=== PATIENT | male | born 1945 | race Two or more races ===

== ENCOUNTER 2023-02-08 13:56 | Outpatient (CLI) | payer OTHER | END 2023-02-08 14:03 | disposition home or self-care (01) | LOC: NUCLEAR 13:56 | PROVIDERS: ATTEND Internal Medicine Endocrinology, Diabetes & Metabolism | DX: M85.89 Other specified disorders of bone density and structure, multiple sites (principal); Z13.820 Encounter for screening for osteoporosis ==

== ENCOUNTER 2023-03-23 07:06 | Outpatient (CLI) | payer OTHER | END 2023-03-23 07:17 | disposition home or self-care (01) | LOC: SONOGRAMA 07:06 | PROVIDERS: ATTEND Internal Medicine Hematology & Oncology | DX: D69.6 Thrombocytopenia, unspecified (principal); B34.9 Viral infection, unspecified ==

== ENCOUNTER 2024-06-21 21:46 | Inpatient (IN) | payer OTHER ==
[~2024-06-21] VITALS: Ht 170.2 cm; Wt 72.6 kg
[2024-06-21] MEDS ORDERED: LIPITOR20 MG (21:56)
[2024-06-21] MEDS ORDERED: GLUMETZA1000 MG (21:57)
[2024-06-21] MEDS ORDERED: COZAAR50 MG (21:57)
[2024-06-21] MEDS ORDERED: NORVASC2.5 MG (21:58)
[2024-06-21] MEDS ORDERED: TAMS0.4C (22:01)
[2024-06-22] MEDS ORDERED: 0.9 % SODIUM CHLORIDE 1,000 ML IV ONE (00:45)
[2024-06-22 01:29] LABS: HEMATOCRIT 34.7 % (39.0-48.0); HEMOGLOBIN 11.7 g/dL (13-16.00); MEAN CELL VOLUME 89.1 fL (80.0-100.00); MEAN CORPUSCULAR HEMOGLOBIN 30.1 pg (27.00-32.0); MEAN CORPUSCULAR HGB CONC 33.7 g/dl (32.0-36.0); RED CELL DISTRIBUTION WIDTH 15.6 % (11.5-14.5)
[2024-06-22 01:32] LABS: PLATELET COUNT 120 K/uL (150-450)
[2024-06-22] MEDS ORDERED: BARIUM SULFATE 450 ML ORAL.SUSP PO ONE (01:37)
[2024-06-22 01:57] LABS: ALBUMIN 3.6 gm/dL (3.4-5.0); BILIRUBIN TOTAL 0.65 mg/dL (0.3-1.2); CALCIUM 8.9 mg/dL (8.5-10.1); CREATININE SERUM 0.92 mg/dL (0.70-1.30); GFR 79.16; GLOBULINA 3.6 G/DL (2.4-3.5); POTASSIUM 3.93 mEq/L (3.5-5.1); TOTAL PROTEIN 7.2 gm/dL (6.4-8.2)
[2024-06-22 02:47] LABS: INR 1.2; PARTIAL THROMBOPLASTIN TIME 37.5 SECONDS (22.0-34.0); PROTHROMBIN TIME 12.4 SECONDS (9.0-11.5)
[2024-06-22 04:29] LABS: PH,URINE 5.5 (5.0-8.0); URINE APPEARANCE Clear; URINE BILIRRUBIN Negative (NEGATIVE); URINE BLOOD Large; URINE COLOR Yellow; URINE GLUCOSE Negative (NEGATIVE); URINE LEUKOCYTE Negative; URINE NITRATE Negative; URINE PROTEIN Negative (NEGATIVE); URINE UROBILINOGEN 0.2 E.U./dl; ob POSITIVE (NEGATIVE)
[2024-06-22 04:32] LABS: URINE BACTERIA 22.6 uL (0.0-1933); URINE RBC 104.7 uL (0.0-20.8)
[2024-06-22 06:20] LABS: HEMATOCRIT 33.8 % (39.0-48.0); HEMOGLOBIN 11.3 g/dL (13-16.00); MEAN CELL VOLUME 89.9 fL (80.0-100.00); MEAN CORPUSCULAR HGB CONC 33.4 g/dl (32.0-36.0); RED BLOOD COUNT 3.76 M/uL (4.00-6.00); RED CELL DISTRIBUTION WIDTH 15.5 % (11.5-14.5)
[2024-06-22 06:23] LABS: PLATELET COUNT 116 K/uL (150-450)
[2024-06-22] MEDS ORDERED: PANTOPRAZOLE SODIUM 40 MG/VIAL VIAL IV PUSH SCH (11:09)
[2024-06-22] MEDS ORDERED: LOSARTAN POTASSIUM 50 MG TABLET PO SCH (11:10)
[2024-06-22] MEDS ORDERED: ATORVASTATIN CALCIUM 20 MG TABLET PO SCH (11:10)
[2024-06-22] MEDS ORDERED: TAMSULOSIN HCL 0.4 MG CAP PO SCH (11:10)
[2024-06-22] MEDS ORDERED: PHYTONADIONE 10 MG/ML AMPUL IM SCH (11:11)
[2024-06-22] MEDS ORDERED: SODIUM CHLORIDE 0.45 % 1,000 ML IV SCH (11:15)
[2024-06-22] MEDS ORDERED: ACETAMINOPHEN 500 MG GEL..CAP PO PRN (11:15)
[2024-06-22] MEDS ORDERED: TAMSULOSIN HCL 0.4 MG CAP PO ONE (11:51)
[2024-06-22] MEDS ORDERED: PHYTONADIONE 10 MG/ML AMPUL ONE (11:51)
[2024-06-22] MEDS ORDERED: AMLODIPINE BESYLATE 5 MG TABLET PO SCH (17:00)
[2024-06-22] MEDS ORDERED: CLONAZEPAM 0.5 MG TABLET PO SCH ×2 (21:00)
[2024-06-23 06:45] LABS: HEMATOCRIT 31.5 % (39.0-48.0); HEMOGLOBIN 10.7 g/dL (13-16.00); MEAN CELL VOLUME 89.5 fL (80.0-100.00); MEAN CORPUSCULAR HEMOGLOBIN 30.4 pg (27.00-32.0); RED BLOOD COUNT 3.52 M/uL (4.00-6.00); RED CELL DISTRIBUTION WIDTH 15.1 % (11.5-14.5)
[2024-06-23 06:48] LABS: PLATELET COUNT 117 K/uL (150-450)
[2024-06-23 06:58] LABS: INR 1.04; PARTIAL THROMBOPLASTIN TIME 28.2 SECONDS (22.0-34.0); PROTHROMBIN TIME 10.9 SECONDS (9.0-11.5)
[2024-06-23 07:41] LABS: ALBUMIN 3.4 gm/dL (3.4-5.0); BILIRUBIN TOTAL 0.93 mg/dL (0.3-1.2); CALCIUM 8.9 mg/dL (8.5-10.1); CHOL HDL RATIO 2.5 (0-5.0); CREATININE SERUM 0.83 mg/dL (0.70-1.30); GFR 89.14; GLOBULINA 2.8 G/DL (2.4-3.5); POTASSIUM 4.1 mEq/L (3.5-5.1); T4 FREE 0.89 NG/ML (0.76-1.46); TOTAL PROTEIN 6.2 gm/dL (6.4-8.2); TSH 0.735 uIU/mL (0.358-3.74)
[2024-06-23 07:56] LABS: PROSTATIC SPECIFIC ANTIGEN 4.15 NG/ML (0.010-4.00)
[2024-06-23 17:30] LABS: ob POSITIVE (NEGATIVE)
[2024-06-24 06:28] LABS: HEMATOCRIT 30.9 % (39.0-48.0); HEMOGLOBIN 10.6 g/dL (13-16.00); MEAN CELL VOLUME 88.7 fL (80.0-100.00); MEAN CORPUSCULAR HEMOGLOBIN 30.6 pg (27.00-32.0); MEAN CORPUSCULAR HGB CONC 34.5 g/dl (32.0-36.0); RED BLOOD COUNT 3.48 M/uL (4.00-6.00); RED CELL DISTRIBUTION WIDTH 14.9 % (11.5-14.5)
[2024-06-24 06:43] LABS: PLATELET COUNT 112 K/uL (150-450)
== END 2024-06-24 21:11 | disposition home or self-care (01) | DRG 379 ==
LOC: ER 21:47 → SEC-K 06-22 11:26 → SURG 06-22 11:26 → MEDI 06-22 12:33 → SURG 06-22 13:55
PROVIDERS: General Practice; ADMIT Internal Medicine; ATTEND Internal Medicine
PROC: BW21ZZZ Computerized Tomography (CT Scan) of Abdomen and Pelvis (ICD-10-PCS; principal; 2024-06-22)
DX: K57.31 Diverticulosis of large intestine without perforation or abscess with bleeding (principal); K62.5 Hemorrhage of anus and rectum; I10 Essential (primary) hypertension

== ENCOUNTER 2025-03-05 07:07 | Outpatient (CLI) | payer OTHER ==
[~2025-03-05 07:07] MED LIST: COZAAR50 MG; GLUMETZA1000 MG; LIPITOR20 MG; NORVASC2.5 MG; TAMS0.4C
== END 2025-03-05 07:13 | disposition home or self-care (01) ==
LOC: SONOGRAMA 07:07
PROVIDERS: ATTEND Internal Medicine Cardiovascular Disease
DX: R31.21 Asymptomatic microscopic hematuria (principal); N20.0 Calculus of kidney